=== PATIENT | male | born 1970 | race Caucasian/White ===

== ENCOUNTER → 2025-03-31 08:19 | Outpatient (REF) | payer SELFPAY | LOC: HWRAD 08:19 | PROVIDERS: ATTENDING PHYSICIAN Physician Assistant Medical | DX: Z00.00 Encounter for general adult medical examination without abnormal findings (principal) | CPT/HCPCS: 75571 ==

== ENCOUNTER → 2025-03-31 08:24 | Outpatient (REF) | payer OTHER, SELFPAY | LOC: HWRAD 08:24 | PROVIDERS: ATTENDING PHYSICIAN Physician Assistant Medical | DX: R22.42 Localized swelling, mass and lump, left lower limb (principal) | CPT/HCPCS: 73590 ==

== ENCOUNTER → 2025-05-17 08:09 | Outpatient (REF) | payer OTHER, SELFPAY | LOC: HWRCS 08:09 | PROVIDERS: ATTENDING PHYSICIAN Physician Assistant Medical; FAMILY PHYSICIAN Physician Assistant Medical | DX: I48.91 Unspecified atrial fibrillation (principal); I10 Essential (primary) hypertension; E78.00 Pure hypercholesterolemia, unspecified | CPT/HCPCS: 78452; 93017; A9500 ==